=== PATIENT | female | born 1955 ===

== ENCOUNTER 2017-08-05 18:22 | Emergency (ER) | payer SELFPAY ==
[2017-08-05 19:41] VITALS: BP 130/83; PULSE 74; TEMP 98.3; O2SAT 96
--- NOTE | 2017-08-05 21:04 | C.PDOC ---
History Of Present Illness 62 year old female presents to the ED for evaluation of generalized body aches, chills, and nasal congestion which began 2 days ago. Patient reports sick contact with son, who is a patient in the ED with similar symptoms. Patient denies chest pain, fever, gu symptoms, shortness of breath, nausea, vomiting, abdominal pain. Time Seen by Provider: 08/05/17 20:37 Chief Complaint (Nursing): Flu-like Symptoms History Per: Patient History/Exam Limitations: no limitations Onset/Duration Of Symptoms: Days (2) Current Symptoms Are (Timing): Still Present Location Of Pain: Diffuse Myalgias Sick Contacts (Context): Family Member(s) Associated Symptoms: Chills, Nasal Congestion. denies: Nausea, Vomiting Additional History Per: Patient Past Medical History Reviewed: Historical Data, Nursing Documentation, Vital Signs Vital Signs: Last Vital Signs Temp 98.3 F 08/05/17 19:37 Pulse 74 08/05/17 19:37 Resp 20 08/05/17 21:22 BP 130/83 08/05/17 19:37 Pulse Ox 96 08/05/17 23:44 - Medical History PMH: Cardia Arrhythmia, HTN, Hypercholesterolemia Surgical History: Cholecystectomy Family History: States: Unknown Family Hx - Social History Hx Alcohol Use: No Hx Substance Use: No - Immunization History Hx Tetanus Toxoid Vaccination: No Hx Influenza Vaccination: No Hx Pneumococcal Vaccination: No Review Of Systems Constitutional: Positive for: Chills ENT: Positive for: Nose Congestion Cardiovascular: Negative for: Chest Pain Respiratory: Negative for: Shortness of Breath Gastrointestinal: Negative for: Nausea, Vomiting, Abdominal Pain Musculoskeletal: Positive for: Other (generalized body aches ) Physical Exam - Physical Exam Appears: Non-toxic, No Acute Distress Skin: Normal Color, Warm, Dry Head: Atraumatic, Normacephalic Eye(s): bilateral: Normal Inspection, EOMI Ear(s): Bilateral: Normal Nose: Other (congestion ) Oral Mucosa: Moist Throat: Normal, No Erythema, No Exudate Neck: Normal, Normal ROM, Supple Chest: Symmetrical, No Deformity, No Tenderness Cardiovascular: Rhythm Regular Respiratory: Normal Breath Sounds, No Rales, No Rhonchi, No Wheezing Gastrointestinal/Abdominal: Soft, No Tenderness Extremity: Normal ROM, Capillary Refill (less than 2 seconds ) Neurological/Psych: Oriented x3, Normal Speech, Normal Cognition Gait: Steady ED Course And Treatment O2 Sat by Pulse Oximetry: 96 (on RA) Pulse Ox Interpretation: Normal Progress Note: On reassessment, patient is resting comfortably, showing no signs of distress, remains afebrile and is stable for discharge. Discussed that symptoms are likely indicative of a viral illness. Instructed symptomatic treatment and advised to f/u with PMD for further evaluation. Disposition - Disposition Referrals: Non [facility] Provider, [Primary Care Provider] - Disposition: HOME/ ROUTINE Disposition Time: 21:03 Condition: STABLE Additional Instructions: Follow up with your primary medical doctor or clinic in 2-5 days for further evaluation. Take medications as prescribed. Return to the emergency department at any time if symptoms persist or worsen. Prescriptions: Guaifen/Dextromethorphan/PE [Mucinex Fast-Max Congest-Cough] 1 each PO Q6 #20 tablet Ibuprofen [Motrin] 600 mg PO Q6 PRN #20 tab PRN Reason: Pain, Mild (1-3) Oseltamivir Phosphate [Tamiflu] 75 mg PO BID #10 capsule Instructions: Flu, Adult (DC) Forms: [employer] ([place]ayan) - Clinical Impression Clinical Impression: Viral illness, URI (upper respiratory infection) - PA / [employer] / Resident Statement MD/DO has reviewed & agrees with the documentation as recorded. - Scribe Statement The provider has reviewed the documentation as recorded by the Scribe (Mariana Vigil) All medical record entries made by the Scribe were at my direction and personally dictated by me. I have reviewed the chart and agree that the record accurately reflects my personal performance of the history, physical exam, medical decision making, and the department course for this patient. I have also personally directed, reviewed, and agree with the discharge instructions and disposition.
[2017-08-05 21:23] VITALS: RESP 20
== END 2017-08-05 21:21 | disposition home or self-care (01) ==
LOC: SUPCPDRO 18:22 → C.ER 18:22
DX: J06.9 Acute upper respiratory infection, unspecified (principal); F17.210 Nicotine dependence, cigarettes, uncomplicated